=== PATIENT | male | born 1975 ===

== ENCOUNTER 2017-11-03 22:26 | Emergency (ER) | payer OTHER ==
[2017-11-03 22:53] VITALS: BP 155/82; PULSE 99; RESP 16; TEMP 99.2; O2SAT 98
[2017-11-03 23:38] LABS: SQUAMOUS EPITHIAL < 1 /hpf (0-5); URINE BILIRUBIN NEGATIVE (NEGATIVE); URINE BLOOD NEGATIVE (NEGATIVE); URINE CLARITY Clear (Clear); URINE COLOR Yellow (YELLOW); URINE GLUCOSE (UA) 1+ mg/dL (Normal); URINE LEUKOCYTE ESTERASE NEG Leu/uL (Negative); URINE NITRATE NEGATIVE (NEGATIVE); URINE PROTEIN NEGATIVE (NEGATIVE); URINE UROBILINOGEN NORMAL mg/dL (0.2-1.0)
[2017-11-03] MEDS ORDERED: cefTRIAXone (Rocephin) 250 mg Inj IM STA (23:48)
--- NOTE | 2017-11-03 23:48 | C.PDOC ---
History Of Present Illness 41 year old male presents to the ER with a complaint of urinary difficulty for the past 2 days. Patient reports he only dribbles when attempting to void and has also had frequency and urgency. Patent notes he had sensation of dysuria during the first day one time. Denies penile discharge, rash, testicular pain, or testicular swelling. Time Seen by Provider: 11/03/17 23:08 Chief Complaint (Nursing): Male Genitourinary History Per: Patient History/Exam Limitations: no limitations Onset/Duration Of Symptoms: Days Current Symptoms Are (Timing): Still Present Associated Symptoms: Urinary Symptoms (Urgency, frequency, difficulty voiding). denies: Other (Rash, testicular pain, or testicular swelling) Alleviating Factors: None Recent travel outside of the [place]: No Past Medical History Reviewed: Historical Data, Nursing Documentation, Vital Signs Vital Signs: Last Vital Signs Temp 99.2 F 11/03/17 22:47 Pulse 99 H 11/03/17 22:47 Resp 16 11/03/17 22:47 BP 155/82 H 11/03/17 22:47 Pulse Ox 98 11/04/17 00:44 - Medical History PMH: No Chronic Diseases Surgical History: No Surg Hx Family History: States: Unknown Family Hx - Social History Hx Alcohol Use: Yes Hx Substance Use: No - Immunization History Hx Influenza Vaccination: No Hx Pneumococcal Vaccination: No Review Of Systems Genitourinary: Positive for: Frequency, Other (Urgency, difficulty voiding.). Negative for: Penile Discharge, Scrotal Pain, Rash Physical Exam - Physical Exam Appears: Non-toxic, No Acute Distress Skin: Normal Color, Warm, Dry Head: Atraumatic, Normacephalic Eye(s): bilateral: Normal Inspection Oral Mucosa: Moist Chest: Symmetrical, No Tenderness Cardiovascular: Rhythm Regular Respiratory: Normal Breath Sounds, No Rales, No Rhonchi, No Wheezing Gastrointestinal/Abdominal: Soft, No Tenderness Extremity: Bilateral: Atraumatic, Normal ROM Neurological/Psych: Oriented x3, Normal Speech, Other (No focal deficits) ED Course And Treatment O2 Sat by Pulse Oximetry: 98 (room air) Pulse Ox Interpretation: Normal Medical Decision Making Medical Decision Making: Plan: * GC/Chlamydia * Urinalysis * Rocephin Patient given Rx for meds and instructed to follow up with urologist for further evaluation. 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 - Scribe Statement The provider has reviewed the documentation as recorded by the Scribolga lidia Toro All medical record entries made by the Esperanzaibolga lidia were at my direction and personally dictated by me. I have reviewed the chart and agree that the record accurately reflects my personal performance of the history, physical exam, medical decision making, and the department course for this patient. I have also personally directed, reviewed, and agree with the discharge instructions and disposition.
== END 2017-11-04 00:28 | disposition home or self-care (01) ==
LOC: C.ER 22:26
DX: N34.2 Other urethritis (principal)
CPT/HCPCS: 81001; 87086; 87491; 87591; 96372; 99283; J0696

== ENCOUNTER 2018-01-11 22:36 | Emergency (ER) | payer OTHER ==
[2018-01-11 22:44] VITALS: BP 165/100; PULSE 96; RESP 20; TEMP 98.1; O2SAT 98
--- NOTE | 2018-01-11 23:25 | C.PDOC ---
History Of Present Illness 42 year old male presents to the ER with a complaint of intermittent dysuria for the past 2 months. Patient was seen and treated in this ER for STD but has had the dysuria intermittently since then. Patient has a Hx of unprotected sex but has been abstinent since last treatment. Denies penile discharge, abdominal pain, or penile lesions. Time Seen by Provider: 01/11/18 22:50 Chief Complaint (Nursing): Male Genitourinary History Per: Patient History/Exam Limitations: no limitations Onset/Duration Of Symptoms: Days, Intermittent Episodes Current Symptoms Are (Timing): Still Present Quality Of Discomfort: Burning Associated Symptoms: Urinary Symptoms (Dysuria). denies: Other (Penile discharge, penile lesions, abdominal pain) Alleviating Factors: None Recent travel outside of the [place]: No Past Medical History Reviewed: Historical Data, Nursing Documentation, Vital Signs Vital Signs: Last Vital Signs Temp 98.1 F 01/11/18 22:41 Pulse 96 H 01/11/18 22:41 Resp 20 01/11/18 22:41 BP 165/100 H 01/11/18 22:41 Pulse Ox 98 01/12/18 00:24 - Medical History PMH: HTN (doesnt take meds), Sexually Transmitted Disease Family History: States: Unknown Family Hx - Social History Hx Alcohol Use: Yes Hx Substance Use: No - Immunization History Hx Influenza Vaccination: No Hx Pneumococcal Vaccination: No Review Of Systems Gastrointestinal: Negative for: Abdominal Pain Genitourinary: Positive for: Dysuria. Negative for: Penile Discharge, Other ( Penile lesions) Physical Exam - Physical Exam Appears: Non-toxic, No Acute Distress Skin: Normal Color, Warm, Dry Head: Atraumatic, Normacephalic Eye(s): bilateral: Normal Inspection Gastrointestinal/Abdominal: Normal Exam, Soft, No Tenderness, No Hernia Male Genital: No Testicular Tenderness, No Testicular Swelling, No Inguinal Tenderness, No Inguinal Swelling, No Scrotal Swelling Neurological/Psych: Oriented x3, Normal Speech ED Course And Treatment O2 Sat by Pulse Oximetry: 98 (Room air) Pulse Ox Interpretation: Normal Progress Note: Urinalysis and G/Chlamydia ordered. Patient instructed to follow up with PMD for further evaluation or return if symptoms worsen. Disposition - Disposition Referrals: 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 - Scribe Statement The provider has reviewed the documentation as recorded by the Scribe John Toro All medical record entries made by the Esperanzaibolga lidia were at my direction and personally dictated by me. I have reviewed the chart and agree that the record accurately reflects my personal performance of the history, physical exam, medical decision making, and the department course for this patient. I have also personally directed, reviewed, and agree with the discharge instructions and disposition.
[2018-01-11 23:32] LABS: SQUAMOUS EPITHIAL < 1 /hpf (0-5); URINE BILIRUBIN NEGATIVE (NEGATIVE); URINE BLOOD NEGATIVE (NEGATIVE); URINE CLARITY Clear (Clear); URINE COLOR Yellow (YELLOW); URINE GLUCOSE (UA) NORMAL (Normal); URINE LEUKOCYTE ESTERASE NEG Leu/uL (Negative); URINE PROTEIN NEGATIVE (NEGATIVE); URINE UROBILINOGEN NORMAL mg/dL (0.2-1.0)
== END 2018-01-11 23:45 | disposition home or self-care (01) ==
LOC: C.ER 22:36 → SUPCPDRO 22:36 → C.ER 23:45
DX: N34.2 Other urethritis (principal); I10 Essential (primary) hypertension